=== PATIENT | female | born 1980 | race Hispanic/Latino ===

== ENCOUNTER 2024-03-04 14:59 | Emergency (ER) | payer BC, OTHER ==
[~2024-03-04] VITALS: Ht 154.9 cm; Wt 71.7 kg
[2024-03-04 15:40] LABS: APPEARANCE,URINE CLEAR (CLEAR); BILIRUBIN,URINE NEGATIVE (NEGATIVE); COLOR,URINE LIGHT-YELLOW (YELLOW); GLUCOSE, URINE (UA) NEGATIVE (NEGATIVE); KETONES,URINE NEGATIVE (NEGATIVE); LEUKOCYTE ESTERASE ,URINE NEGATIVE Leu/uL (NEGATIVE); NITRATE,URINE NEGATIVE (NEGATIVE); OCCULT BLOOD,URINE NEGATIVE (NEGATIVE); PROTEIN,URINE 10 mg/dL (NEGATIVE); UROBILINOGEN,URINE 0.2 mg/dL (0.2-1.0)
[2024-03-04 15:43] LABS: HCG,QUALITATIVE URINE NEGATIVE (NEGATIVE)
[2024-03-04 15:44] LABS: ADD UA MICROSCOPIC YES
[2024-03-04 15:45] LABS: BACTERIA,URINE RARE /HPF (None Seen); MUCUS,URINE RARE LPF (None Seen); SQUAMOUS EPITHELIAL CELL,UR MOD /HPF (0-2)
[2024-03-04 15:47] LABS: BASOPHILS # (AUTO) 0.05 K/uL (0.00-0.20); BASOPHILS % (AUTO) 0.4 % (0.0-5.0); EOSINOPHILS # (AUTO) 0.02 K/uL (0.00-0.70); EOSINOPHILS % (AUTO) 0.2 % (0.0-8.0); HEMATOCRIT 37.3 % (36-48); IMMATURE GRANULOCYTE ABSOLUTE 0.05 K/uL (0-1); LYMPHOCYTES # (AUTO) 0.8 K/uL (1.0-4.8); MEAN CORPUSCULAR HEMOGLOBIN 24.5 pg (27.0-33.0); MEAN CORPUSCULAR HGB CONC 30.8 g/dL (32.0-36.0); MEAN CORPUSCULAR VOLUME 79.4 fL (79-99); MONOCYTES # (AUTO) 0.4 K/uL (0.1-1.0); MONOCYTES % (AUTO) 2.8 % (3.0-13.0); NEUTROPHILS # (AUTO) 11.5 K/uL (1.8-7.7); NEUTROPHILS % (AUTO) 90.2 % (40.0-77.0); PLATELET COUNT (AUTO) 221 K/uL (130-400); RED CELL DISTRIBUTION WIDTH 21.1 % (11.0-15.5); WHITE BLOOD COUNT (AUTO) 12.8 K/uL (4.8-10.8)
[2024-03-04] MEDS: 0.9%NACL 1000ML 1,000 ML IV ONE (15:52)
[2024-03-04] MEDS: ONDANSETRON 4MG INJ IVP ONE (15:53)
[2024-03-04] MEDS: KETOROLAC 15MG/ML VIAL (15MG/ML) IV ONE (15:53)
[2024-03-04] MEDS: MAG/ALUM/SIMETH 30 ML UDCUP PO ONE (15:53)
[2024-03-04] MEDS: LIDOCAINE HCL 2% VISCOUS 15 ML UDCUP PO ONE (15:53)
[2024-03-04] MEDS: FAMOTIDINE 20MG VIAL IV ONE (15:53)
[2024-03-04 15:59] LABS: CREATININE 0.6 mg/dL (0.5-1.0); POTASSIUM 4.4 mmol/L (3.5-5.1)
[2024-03-04 16:04] LABS: ALBUMIN 3.9 g/dL (3.5-5.0); BILIRUBIN,TOTAL 0.4 mg/dL (0.2-1.0)
[2024-03-04 16:05] LABS: WBC MORPHOLOGY CONSISTENT W/DIFF
[2024-03-04] MEDS ORDERED: IOHEXOL 350 MG/ML 100ML INFUS..BTL IV ONE (17:32)
[2024-03-04 17:43] VITALS: BP 135/72; PULSE 75; RESP 16; O2SAT 100
[2024-03-04] MEDS ORDERED: ONDA4TAB10 PO (18:31)
[2024-03-04] MEDS ORDERED: FAMO-136 PO (18:31)
== END 2024-03-04 18:47 | disposition home or self-care (01) ==
LOC: EDH 14:59
DX: K52.9 Noninfective gastroenteritis and colitis, unspecified (principal); R10.13 Epigastric pain; R11.2 Nausea with vomiting, unspecified; E11.9 Type 2 diabetes mellitus without complications; E78.00 Pure hypercholesterolemia, unspecified; Z90.49 Acquired absence of other specified parts of digestive tract
CPT/HCPCS: 99284; 74177; 96374; 96375; 96361; 80053; 83690; 85025; 81001; 81025; 36415; J3490; J7030; J2405; J1885; Q9967

== ENCOUNTER 2024-04-30 12:08 | Emergency (ER) | payer BC ==
[~2024-04-30] VITALS: Ht 162.6 cm; Wt 70.8 kg
[~2024-04-30 12:08] MED LIST: FAMO-136 PO; ONDA-243 PO
[2024-04-30 12:56] LABS: BASOPHILS # (AUTO) 0.05 K/uL (0.00-0.20); BASOPHILS % (AUTO) 0.3 % (0.0-5.0); EOSINOPHILS # (AUTO) 0.01 K/uL (0.00-0.70); EOSINOPHILS % (AUTO) 0.1 % (0.0-8.0); HEMATOCRIT 36.5 % (36-48); IMMATURE GRANULOCYTE ABSOLUTE 0.09 K/uL (0-1); LYMPHOCYTES # (AUTO) 0.6 K/uL (1.0-4.8); LYMPHOCYTES % (AUTO) 3.3 % (21.0-51.0); MEAN CORPUSCULAR HEMOGLOBIN 24.9 pg (27.0-33.0); MEAN CORPUSCULAR HGB CONC 32.1 g/dL (32.0-36.0); MEAN CORPUSCULAR VOLUME 77.8 fL (79-99); MONOCYTES # (AUTO) 0.5 K/uL (0.1-1.0); MONOCYTES % (AUTO) 2.9 % (3.0-13.0); NEUTROPHILS # (AUTO) 17.1 K/uL (1.8-7.7); NEUTROPHILS % (AUTO) 92.9 % (40.0-77.0); PLATELET COUNT (AUTO) 214 K/uL (130-400); RED BLOOD CELL COUNT(AUTO) 4.69 MIL/uL (4.00-5.50); RED CELL DISTRIBUTION WIDTH 14.3 % (11.0-15.5); WHITE BLOOD COUNT (AUTO) 18.4 K/uL (4.8-10.8)
[2024-04-30 13:04] LABS: CREATININE 0.7 mg/dL (0.5-1.0); POTASSIUM 4.4 mmol/L (3.5-5.1)
[2024-04-30 13:08] LABS: ALBUMIN 3.8 g/dL (3.5-5.0); BILIRUBIN,TOTAL 0.5 mg/dL (0.2-1.0); TOTAL PROTEIN, SERUM 7.9 g/dL (6.0-8.3)
[2024-04-30 14:37] LABS: ADD UA MICROSCOPIC YES; APPEARANCE,URINE CLEAR (CLEAR); BILIRUBIN,URINE NEGATIVE (NEGATIVE); COLOR,URINE LIGHT-YELLOW (YELLOW); GLUCOSE, URINE (UA) 500 mg/dL (NEGATIVE); KETONES,URINE 5 mg/dL (NEGATIVE); LEUKOCYTE ESTERASE ,URINE NEGATIVE Leu/uL (NEGATIVE); NITRATE,URINE NEGATIVE (NEGATIVE); OCCULT BLOOD,URINE SMALL (NEGATIVE); PROTEIN,URINE 50 mg/dL (NEGATIVE); UROBILINOGEN,URINE 0.2 mg/dL (0.2-1.0)
[2024-04-30 14:38] LABS: MUCUS,URINE RARE LPF (None Seen); SQUAMOUS EPITHELIAL CELL,UR FEW /HPF (0-2)
[2024-04-30 14:39] LABS: HCG,QUALITATIVE URINE NEGATIVE (NEGATIVE)
[2024-04-30] MEDS ORDERED: IOHEXOL-350 75 ML VIAL IV ONE (15:59)
[2024-04-30] MEDS ORDERED: IOHEXOL 350 MG/ML 100ML INFUS..BTL IV ONE (16:35)
[2024-04-30] MEDS: KETOROLAC 15MG/ML VIAL (15MG/ML) IV ONE (17:15)
[2024-04-30 17:59] VITALS: BP 110/62; PULSE 62; RESP 18; O2SAT 98
[2024-04-30] MEDS ORDERED: ONDA-243 PO (18:06)
[2024-04-30] MEDS ORDERED: FAMO-136 PO (18:06)
[2024-04-30] MEDS ORDERED: AZIT250T9 PO (18:06)
[2024-04-30] MEDS: CEFTRIAXONE 1G VIAL IM ONE (18:10)
[2024-04-30] MEDS ORDERED: CEFTRIAXONE 1G VIAL IVPB ONE (18:30)
== END 2024-04-30 18:28 | disposition home or self-care (01) ==
LOC: EDH 12:08
DX: K52.9 Noninfective gastroenteritis and colitis, unspecified (principal); R11.2 Nausea with vomiting, unspecified; D72.829 Elevated white blood cell count, unspecified; E78.00 Pure hypercholesterolemia, unspecified; Z90.710 Acquired absence of both cervix and uterus
CPT/HCPCS: 99284; 74177; 96374; 80053; 83690; 85025; 81001; 81025; 36415; 96372; J0696; J1885; Q9967

== ENCOUNTER 2024-08-23 18:41 | Inpatient (IN) | payer BC ==
[~2024-08-23] VITALS: Ht 157.5 cm; Wt 67.6 kg
[~2024-08-23 18:41] MED LIST changes: +AZIT250T9 PO
[2024-08-23 19:12] LABS: BASOPHILS # (AUTO) 0.04 K/uL (0.00-0.20); BASOPHILS % (AUTO) 0.2 % (0.0-5.0); HEMATOCRIT 34.6 % (36-48); IMMATURE GRANULOCYTE ABSOLUTE 0.11 K/uL (0-1); LYMPHOCYTES # (AUTO) 0.4 K/uL (1.0-4.8); LYMPHOCYTES % (AUTO) 2.5 % (21.0-51.0); MEAN CORPUSCULAR HEMOGLOBIN 23.2 pg (27.0-33.0); MEAN CORPUSCULAR HGB CONC 31.8 g/dL (32.0-36.0); MONOCYTES # (AUTO) 0.4 K/uL (0.1-1.0); MONOCYTES % (AUTO) 2.3 % (3.0-13.0); NEUTROPHILS % (AUTO) 94.3 % (40.0-77.0); PLATELET COUNT (AUTO) 152 K/uL (130-400); RED BLOOD CELL COUNT(AUTO) 4.74 MIL/uL (4.00-5.50); WHITE BLOOD COUNT (AUTO) 16.9 K/uL (4.8-10.8)
[2024-08-23] MEDS: ondanSETRON 4MG INJ IVP ONE (19:20)
[2024-08-23] MEDS: FAMOTIDINE 20MG VIAL IV ONE (19:20)
[2024-08-23] MEDS: 0.9%NACL 1000ML 1,000 ML IV ONE (19:20)
[2024-08-23] MEDS: morPHINE 4 MG SYG IVP ONE ×2 (19:21→21:27)
[2024-08-23 19:22] LABS: CREATININE 0.7 mg/dL (0.5-1.0); POTASSIUM 3.6 mmol/L (3.5-5.1)
[2024-08-23 19:31] LABS: APPEARANCE,URINE CLOUDY (CLEAR); BILIRUBIN,URINE NEGATIVE (NEGATIVE); COLOR,URINE BROWN (YELLOW); GLUCOSE, URINE (UA) 50 mg/dL (NEGATIVE); KETONES,URINE 100 mg/dL (NEGATIVE); LEUKOCYTE ESTERASE ,URINE 75 Leu/uL (NEGATIVE); NITRATE,URINE NEGATIVE (NEGATIVE); OCCULT BLOOD,URINE LARGE (NEGATIVE); PH,URINE 5.5 (5.0-8.0); PROTEIN,URINE 100 mg/dL (NEGATIVE); UROBILINOGEN,URINE 0.2 mg/dL (0.2-1.0)
[2024-08-23 19:32] LABS: ADD UA MICROSCOPIC YES
[2024-08-23 19:33] LABS: HCG,QUALITATIVE URINE NEGATIVE (NEGATIVE)
[2024-08-23 19:34] LABS: MUCUS,URINE MANY LPF (None Seen); RBC,URINE TNTC /HPF (0-1); SQUAMOUS EPITHELIAL CELL,UR MANY /HPF (0-2); UNCLASSIFIED CRYSTAL 11 /HPF (None Seen); WBC CLUMP MOD /HPF (0-1); WBC,URINE TNTC /HPF (0-1); YEAST,URINE BUDDING FEW /HPF (None Seen)
[2024-08-23] MEDS ORDERED: IOHEXOL-350 75 ML VIAL IV ONE (19:35)
[2024-08-23] MEDS: Solu-medROL 125MG VIAL IVP ONE (21:27)
[2024-08-23] MEDS ORDERED: TEMAZepam 15 MG CAPSULE PO PRN (21:30)
[2024-08-23] MEDS ORDERED: acetaMINOPHEN 650 MG SUPPOSITORY RC PRN (21:30)
[2024-08-23] MEDS ORDERED: doCUSate SODIUM 100 MG CAP PO PRN (21:30)
[2024-08-23] MEDS ORDERED: acetaMINOPHEN 325 MG TAB PO PRN (21:30)
[2024-08-23] MEDS ORDERED: morPHINE 2 MG SYG IVP PRN (21:30)
[2024-08-23] MEDS: metRONIDazole 500MG/100ML BAG 100 ML IVPB SCH (22:20)
[2024-08-23] MEDS: levoFLOXacin 500 MG/D5W 100 ML 100 ML IV SCH (22:20)
[2024-08-23 23:05] VITALS: BP 142/65; PULSE 73; RESP 17; TEMP 97.4
[2024-08-23] MEDS ORDERED: ROSU20TA98 PO (23:37)
[2024-08-23] MEDS ORDERED: PANT40TA54 PO (23:37)
[2024-08-23] MEDS ORDERED: METF-444 PO (23:37)
[2024-08-23] MEDS ORDERED: DICY10 PO (23:37)
[2024-08-24 03:45] LABS: SARS-CoV-2, RNA, NAAT NEGATIVE SARS CoV-2 (NEGATIVE)
[2024-08-24 03:49] LABS: INFLUENZA TYPE A Negative For Type A (NEGATIVE); INFLUENZA TYPE B Negative For Type B (NEGATIVE)
[2024-08-24 03:53] LABS: BASOPHILS # (AUTO) 0.01 K/uL (0.00-0.20); BASOPHILS % (AUTO) 0.1 % (0.0-5.0); HEMATOCRIT 36.2 % (36-48); IMMATURE GRANULOCYTE ABSOLUTE 0.06 K/uL (0-1); LYMPHOCYTES # (AUTO) 0.3 K/uL (1.0-4.8); LYMPHOCYTES % (AUTO) 2.8 % (21.0-51.0); MEAN CORPUSCULAR HEMOGLOBIN 23.5 pg (27.0-33.0); MEAN CORPUSCULAR HGB CONC 31.5 g/dL (32.0-36.0); MEAN CORPUSCULAR VOLUME 74.6 fL (79-99); MONOCYTES # (AUTO) 0.1 K/uL (0.1-1.0); MONOCYTES % (AUTO) 0.9 % (3.0-13.0); NEUTROPHILS # (AUTO) 11.5 K/uL (1.8-7.7); NEUTROPHILS % (AUTO) 95.7 % (40.0-77.0); PLATELET COUNT (AUTO) 140 K/uL (130-400); RED BLOOD CELL COUNT(AUTO) 4.85 MIL/uL (4.00-5.50)
[2024-08-24 04:00] VITALS: BP 112/69; PULSE 66; RESP 16; TEMP 97.5
[2024-08-24] MEDS: 0.9%NACL 1000ML 1,000 ML IV SCH (04:14)
[2024-08-24 04:16] LABS: ALBUMIN 3.4 g/dL (3.5-5.0); BILIRUBIN,TOTAL 0.5 mg/dL (0.2-1.0); CREATININE 0.7 mg/dL (0.5-1.0); MAGNESIUM 1.9 mg/dL (1.80-2.40); POTASSIUM 3.6 mmol/L (3.5-5.1); TOTAL PROTEIN, SERUM 7.4 g/dL (6.0-8.3)
[2024-08-24] MEDS: INSULIN humuLIN R 100 UNIT/ML 3ML SQ SCH (05:59)
[2024-08-24 07:58] VITALS: BP 140/76; PULSE 71; RESP 20; TEMP 98
[2024-08-24 08:10] VITALS: O2SAT 99
[2024-08-24] MEDS: atorVAStatin 40 MG TABLET PO SCH (08:14)
[2024-08-24] MEDS: FAMOTIDINE 20MG TAB PO SCH (08:14)
[2024-08-24] MEDS: ENOXAPARIN SODIUM 30 MG/0.3 ML SQ SCH (08:16)
[2024-08-24 11:00] VITALS: BP 140/77; PULSE 78; RESP 18; TEMP 98.3
[2024-08-24] MEDS: LACTULOSE 20 GM/30 ML UDCUP PO PRN (13:20)
[2024-08-24] MEDS: ondanSETRON 4MG INJ IVP PRN (13:25)
[2024-08-24 16:00] VITALS: BP 122/68; PULSE 80; RESP 18; TEMP 98.6
[2024-08-24 20:00] VITALS: BP 108/57; PULSE 80; RESP 18; TEMP 97.5
[2024-08-24] MEDS: DICYCLOMINE HCL 20 MG TAB PO PRN (20:44)
[2024-08-25] VITALS (8 sets, daily range): BP systolic 109–148; BP diastolic 55–77; PULSE 64–84; RESP 17–19; TEMP 97.4–98.9; O2SAT 100
[2024-08-25] MEDS: ketOROlac 30MG VIAL (30MG/ML) IVP PRN (17:53)
[2024-08-26 04:10] VITALS: BP 124/57; PULSE 58; RESP 18; TEMP 98
[2024-08-26 08:00] VITALS: BP 129/68; PULSE 56; RESP 19; TEMP 98.1
[2024-08-26 08:35] VITALS: O2SAT 99
[2024-08-26] MEDS ORDERED: LEVO-70 PO (09:52)
[2024-08-26 10:36] LABS: BASOPHILS # (AUTO) 0.04 K/uL (0.00-0.20); BASOPHILS % (AUTO) 0.7 % (0.0-5.0); EOSINOPHILS # (AUTO) 0.04 K/uL (0.00-0.70); EOSINOPHILS % (AUTO) 0.7 % (0.0-8.0); HEMATOCRIT 30.3 % (36-48); IMMATURE GRANULOCYTE ABSOLUTE 0.02 K/uL (0-1); LYMPHOCYTES # (AUTO) 1.7 K/uL (1.0-4.8); LYMPHOCYTES % (AUTO) 28.2 % (21.0-51.0); MEAN CORPUSCULAR HEMOGLOBIN 23.1 pg (27.0-33.0); MEAN CORPUSCULAR HGB CONC 30.7 g/dL (32.0-36.0); MEAN CORPUSCULAR VOLUME 75.4 fL (79-99); MONOCYTES # (AUTO) 0.3 K/uL (0.1-1.0); MONOCYTES % (AUTO) 5.6 % (3.0-13.0); NEUTROPHILS # (AUTO) 3.9 K/uL (1.8-7.7); NEUTROPHILS % (AUTO) 64.5 % (40.0-77.0); PLATELET COUNT (AUTO) 110 K/uL (130-400); RED BLOOD CELL COUNT(AUTO) 4.02 MIL/uL (4.00-5.50); RED CELL DISTRIBUTION WIDTH 14.5 % (11.0-15.5)
[2024-08-26 12:13] VITALS: BP 134/75; PULSE 79; RESP 19; TEMP 97.6
[2024-08-26 13:17] LABS: HEMOGLOBIN A1C 6.1 % (4.0-6.0)
[2024-08-26 13:44] LABS: CHOLESTEROL 111 mg/dL (<200); HDL CHOLESTEROL 42 mg/dL (35-85); LDL DIRECT 50 mg/dL (0-99); TRIGLYCERIDES 129 mg/dL (30-200)
== END 2024-08-26 13:35 | disposition home or self-care (01) | DRG 392 ==
LOC: EDH 18:41 → EDHIP 21:08 → 3DH 23:11
PROVIDERS: ADMIT Internal Medicine; ATTEND Internal Medicine
DX: A09 Infectious gastroenteritis and colitis, unspecified (principal); N30.00 Acute cystitis without hematuria; Z20.822 Contact with and (suspected) exposure to COVID-19; E86.0 Dehydration; D64.9 Anemia, unspecified; E11.65 Type 2 diabetes mellitus with hyperglycemia; I10 Essential (primary) hypertension; E78.00 Pure hypercholesterolemia, unspecified; Z87.11 Personal history of peptic ulcer disease; Z90.49 Acquired absence of other specified parts of digestive tract
CPT/HCPCS: 36415; 74177; 80048; 80053; 80061; 81001; 81025; 82010; 82306; 82607; 82948; 83036; 83690; 83735; 84100; 85025; 86677; 87040; 87086; 87338; 87635; 87804; 96374; 96375; G0378; J1650; J1885; J1956; J2270; J2405; J2919; J3490; J7030; Q9967

== ENCOUNTER 2024-09-04 21:32 | Emergency (ER) | payer BC ==
[~2024-09-04] VITALS: Ht 157.5 cm; Wt 64.9 kg
[~2024-09-04 21:32] MED LIST changes: -AZIT250T9 PO; +DICY10 PO; -FAMO-136 PO; +LEVO-70 PO; +METF-444 PO; +PANT40TA54 PO; +ROSU20TA98 PO
[2024-09-04 22:11] LABS: ADD UA MICROSCOPIC YES; APPEARANCE,URINE CLOUDY (CLEAR); BILIRUBIN,URINE NEGATIVE (NEGATIVE); COLOR,URINE YELLOW (YELLOW); GLUCOSE, URINE (UA) NEGATIVE (NEGATIVE); KETONES,URINE NEGATIVE (NEGATIVE); LEUKOCYTE ESTERASE ,URINE 25 Leu/uL (NEGATIVE); NITRATE,URINE NEGATIVE (NEGATIVE); OCCULT BLOOD,URINE NEGATIVE (NEGATIVE); PROTEIN,URINE 30 mg/dL (NEGATIVE); UROBILINOGEN,URINE 0.2 mg/dL (0.2-1.0)
[2024-09-04 22:13] LABS: MUCUS,URINE RARE LPF (None Seen); NON-SQUAMOUS EPITHELIAL CELL 2 /HPF (0-2); SQUAMOUS EPITHELIAL CELL,UR FEW /HPF (0-2)
[2024-09-04 22:24] LABS: BASOPHILS # (AUTO) 0.04 K/uL (0.00-0.20); BASOPHILS % (AUTO) 0.3 % (0.0-5.0); EOSINOPHILS # (AUTO) 0.01 K/uL (0.00-0.70); EOSINOPHILS % (AUTO) 0.1 % (0.0-8.0); HEMATOCRIT 31.6 % (36-48); IMMATURE GRANULOCYTE ABSOLUTE 0.04 K/uL (0-1); LYMPHOCYTES # (AUTO) 0.8 K/uL (1.0-4.8); LYMPHOCYTES % (AUTO) 5.8 % (21.0-51.0); MEAN CORPUSCULAR HEMOGLOBIN 22.9 pg (27.0-33.0); MEAN CORPUSCULAR HGB CONC 30.7 g/dL (32.0-36.0); MEAN CORPUSCULAR VOLUME 74.5 fL (79-99); MONOCYTES # (AUTO) 0.4 K/uL (0.1-1.0); MONOCYTES % (AUTO) 3.3 % (3.0-13.0); NEUTROPHILS # (AUTO) 11.8 K/uL (1.8-7.7); NEUTROPHILS % (AUTO) 90.2 % (40.0-77.0); PLATELET COUNT (AUTO) 410 K/uL (130-400); RED BLOOD CELL COUNT(AUTO) 4.24 MIL/uL (4.00-5.50); RED CELL DISTRIBUTION WIDTH 14.3 % (11.0-15.5)
[2024-09-04] MEDS: ondanSETRON 4MG INJ IVP ONE (22:25)
[2024-09-04] MEDS: FAMOTIDINE 20MG VIAL IV ONE (22:25)
[2024-09-04] MEDS: 0.9%NACL 1000ML 1,000 ML IV ONE (22:25)
[2024-09-04] MEDS: MAG/ALUM/SIMETH 30 ML UDCUP PO ONE (22:25)
[2024-09-04] MEDS: LIDOCAINE HCL 2% VISCOUS 15 ML UDCUP PO ONE (22:26)
[2024-09-04] MEDS: DICYCLOMINE HCL 10 MG/5 ML ML PO ONE (22:26)
[2024-09-04] MEDS: morPHINE 2 MG SYG IVP ONE (22:27)
[2024-09-04 22:32] VITALS: TEMP 97.9
[2024-09-04 22:32] LABS: CREATININE 0.7 mg/dL (0.5-1.0); POTASSIUM 4.2 mmol/L (3.5-5.1)
[2024-09-04 22:37] LABS: ALBUMIN 3.7 g/dL (3.5-5.0); BILIRUBIN,TOTAL 0.6 mg/dL (0.2-1.0); TOTAL PROTEIN, SERUM 7.5 g/dL (6.0-8.3)
[2024-09-04] MEDS ORDERED: SUCR1TAB28 PO (23:09)
[2024-09-04] MEDS ORDERED: OMEP40CA21 PO (23:09)
[2024-09-04 23:22] VITALS: BP 128/51; PULSE 59; RESP 18; O2SAT 100
[2024-09-05 01:04] LABS: WBC MORPHOLOGY CONSISTENT W/DIFF
== END 2024-09-04 23:33 | disposition home or self-care (01) ==
LOC: EDH 21:32
DX: K29.00 Acute gastritis without bleeding (principal); R11.2 Nausea with vomiting, unspecified; E87.8 Other disorders of electrolyte and fluid balance, not elsewhere classified; E78.00 Pure hypercholesterolemia, unspecified; Z79.84 Long term (current) use of oral hypoglycemic drugs; Z79.899 Other long term (current) drug therapy
CPT/HCPCS: 99284; 96374; 96375; 80053; 83690; 85025; 87086; 81001; 36415; J3490; J2270; J7030; J2405

== ENCOUNTER 2025-05-06 12:58 | Emergency (ER) | payer BC ==
[~2025-05-06] VITALS: Ht 157.5 cm; Wt 70.8 kg
[~2025-05-06 12:58] MED LIST changes: +OMEP40CA21 PO; +SUCR1TAB28 PO
--- NOTE | 2025-05-06 13:11 | EKG ---
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
[2025-05-06 13:20] LABS: BASOPHILS # (AUTO) 0.05 K/uL (0.00-0.20); BASOPHILS % (AUTO) 0.5 % (0.0-5.0); EOSINOPHILS # (AUTO) 0.04 K/uL (0.00-0.70); EOSINOPHILS % (AUTO) 0.4 % (0.0-8.0); HEMATOCRIT 42.7 % (36-48); IMMATURE GRANULOCYTE ABSOLUTE 0.04 K/uL (0-1); LYMPHOCYTES # (AUTO) 1.1 K/uL (1.0-4.8); LYMPHOCYTES % (AUTO) 10.3 % (21.0-51.0); MEAN CORPUSCULAR HEMOGLOBIN 26.5 pg (27.0-33.0); MEAN CORPUSCULAR HGB CONC 33.5 g/dL (32.0-36.0); MEAN CORPUSCULAR VOLUME 79.1 fL (79-99); MONOCYTES # (AUTO) 0.4 K/uL (0.1-1.0); MONOCYTES % (AUTO) 3.7 % (3.0-13.0); NEUTROPHILS # (AUTO) 8.9 K/uL (1.8-7.7); NEUTROPHILS % (AUTO) 84.7 % (40.0-77.0); PLATELET COUNT (AUTO) 322 K/uL (130-400); WHITE BLOOD COUNT (AUTO) 10.5 K/uL (4.8-10.8)
[2025-05-06 13:25] LABS: ADD UA MICROSCOPIC YES; APPEARANCE,URINE CLEAR (CLEAR); BILIRUBIN,URINE NEGATIVE (NEGATIVE); COLOR,URINE YELLOW (YELLOW); GLUCOSE, URINE (UA) 30 mg/dL (NEGATIVE); KETONES,URINE NEGATIVE (NEGATIVE); LEUKOCYTE ESTERASE ,URINE NEGATIVE Leu/uL (NEGATIVE); NITRATE,URINE NEGATIVE (NEGATIVE); OCCULT BLOOD,URINE NEGATIVE (NEGATIVE); PH,URINE 5.5 (5.0-8.0); PROTEIN,URINE 20 mg/dL (NEGATIVE); UROBILINOGEN,URINE 0.2 mg/dL (0.2-1.0)
[2025-05-06 13:28] LABS: MUCUS,URINE FEW LPF (None Seen); RBC,URINE 0-1 /HPF (0-1); SQUAMOUS EPITHELIAL CELL,UR RARE /HPF (0-2); WBC,URINE 0-1 /HPF (0-1)
[2025-05-06 13:29] LABS: HCG,QUALITATIVE URINE NEGATIVE (NEGATIVE)
--- NOTE | 2025-05-06 13:33 | ERN ---
General Chief Complaint: Chest Pain Stated Complaint: CHEST PAIN Time Seen by MD: 13:00 Source: patient History of Present Illness Initial Comments In his is a 44-year-old female coming in to be evaluated for chest pressure. Per patient the chest pressure began yesterday. She states that the chest pressure is on and off related to any physical activity. She also states he has a history of cholesterol Allergies: Coded Allergies: No Known Allergies (Unverified Allergy, Unknown, 03/04/24) Home Meds Active Scripts Omeprazole (Omeprazole) 40 Mg Capsule.dr, 1 CAP PO DAILY for 30 Days, #30 CAP 0 Refills Prov:JOSEPHINE VELIZ OENOLOGIST 09/04/24 Sucralfate (Carafate) 1 Gram Tablet, 1 TAB PO ACHS for 10 Days, #40 TAB 0 Refills Prov:JOSEPHINE VELIZ OENOLOGIST 09/04/24 Levofloxacin (Levofloxacin) 500 Mg Tablet, 1 TAB PO DAILY for 5 Days, #5 TAB 0 Refills Prov:RADHA WARD NP 08/26/24 Ondansetron (Ondansetron Odt) 4 Mg Tab.rapdis, 4 MG PO BID for 7 Days, #14 TAB Prov:MARY GAMBINO 04/30/24 Reported Medications Metformin HCl (Metformin HCl) 500 Mg Tablet, 1 TAB PO DAILY 08/23/24 Dicyclomine HCl (Bentyl) 10 Mg Cap, 2 CAP PO BID PRN for pain 08/23/24 Pantoprazole Sodium (Pantoprazole Sodium) 40 Mg Tablet.dr, 1 TAB PO BID 08/23/24 Rosuvastatin Calcium (Rosuvastatin Calcium) 20 Mg Tablet, 1 TAB PO DAILY 08/23/24 Past Medical History Past Medical History: High Cholesterol Medical History Other: X7 GASTRIC ULCERS WITH RESECTION Past Surgical History: Other Surgical History Other: BBL,TUMMY TUCK,BREAST AUGMENTATION Female( History) History: Not Applicable ROS Dictation CONSTITUTIONAL: No chills, no fever, no weakness, no diaphoresis, no malaise. HEAD/FACE: No signs of trauma. EENT: No eye pain, no blurred vision, no tearing, no double vision, no ear pain, no ear discharge, no nose pain, no nasal congestion, no throat pain, no throat swelling, no mouth pain. RESPIRATORY: No cough, no orthopnea, no SOB, no stridor, no wheezing. CARDIOVASCULAR: chest pain, no edema, no palpitations, no syncope. GASTROINTESTINAL/ABDOMINAL: No abdominal pain, no constipation, no diarrhea, no nausea, no vomiting. GENITOURINARY: No abnormal discharge, no dysuria, no frequent urination, no hematuria. No complaints of pain in the genitals. MUSCULOSKELETAL: No back pain, no gout, no joint pain, no joint swelling, no muscle pain, no muscle stiffness, no neck pain. INTEGUMENTARY: No change in color, no change in hair/nails, no dryness, no lesion, no lumps, no rash. NEUROLOGICAL/PSYCH: No anxiety, not depressed, no emotional problem, no headache, no numbness, no pre-existing deficit, no history of seizures, no tremors, no weakness. HEMATOLOGIC/LYMPHATIC: Not anemic, no history of blood clots, no apparent bleeding, no bruising, glands not swollen. All Systems Negative, Except as Noted. Physical Exam Physical Exam Dictation VITAL SIGNS: Reviewed. GENERAL APPEARANCE: Alert, oriented x3, no acute distress, obese. HEAD AND FACE: Non-traumatic. EYES: PERRL, pink conjunctivas, eyelid no trauma, anterior chamber clear. EARS: Pinnas intact and no signs of trauma or erythema. Ear canals clear and no discharge. TMs no erythema. NOSE: No discharge, no bleeding. OROPHARYNX: Mouth normal, teeth no caries, tongue pink. Pharynx clear, no erythema. Tonsils no exudates, no abscesses noted. Mucous membrane moist. NECK: Supple, non-tender, no thyromegaly, no masses, no JVD, no bruits. BREAST: Deferred. CHEST: No tenderness, no crepitus, no paradoxical movement, no retractions. LUNGS: Clear, well-ventilated, symmetric, no rales, no wheezing, no rhonchi, no stridor, good breath sounds bilaterally. HEART: Regular rate, regular rhythm, no murmur, no gallops. VASCULAR: No peripheral edema. ABDOMEN: Soft, positive bowel sounds, nondistended, no guarding, nontender, no rebound, no masses no hepatomegaly, no splenomegaly, no Cornelius's sign, no hernias. RECTAL: Deferred. GENITAL: Deferred. NEUROLOGICAL: Normal speech, gross motor function intact, gross sensory function intact. MUSCULOSKELETAL: Neck nontender, full range of motion, back nontender, full range of motion. EXTREMITIES: Nontender, full range of motion. SKIN: Color pink, dry, no turgor, no rash, no lacerations, no abrasions, no contusions. LYMPHATICS: Deferred. Results Laboratory and Microbiology Lab and Micro Result Laboratory Tests Test 05/06/25 13:02 05/06/25 13:14 05/06/25 14:10 Urine Color YELLOW (YELLOW) Urine Appearance CLEAR (CLEAR) Urine pH 5.5 (5.0-8.0) Urine Specific [place] 1.024 (1.001-1.031) Urine Protein 20 mg/dL (NEGATIVE) H Urine Glucose (UA) 30 mg/dL (NEGATIVE) H Urine Ketones NEGATIVE mg/dL (NEGATIVE) Urine Occult Blood NEGATIVE (NEGATIVE) Urine Nitrate NEGATIVE (NEGATIVE) Urine Bilirubin NEGATIVE mg/dL (NEGATIVE) Urine Urobilinogen 0.2 mg/dL (0.2-1.0) Urine Leukocyte Esterase NEGATIVE Bette/uL Urine RBC 0-1 /HPF (0-1) Urine WBC 0-1 /HPF (0-1) Urine Squamous Epithelial Cells RARE /HPF (0-2) Urine Bacteria None /HPF (None Seen) Urine HCG, Qualitative NEGATIVE (NEGATIVE) White Blood Count 10.5 K/uL (4.8-10.8) Red Blood Count 5.40 MIL/uL (4.00-5.50) Hemoglobin 14.3 g/dL (12.0-16.0) Hematocrit 42.7 % (36-48) Mean Corpuscular Volume 79.1 fL (79-99) Mean Corpuscular Hemoglobin 26.5 pg (27.0-33.0) L Mean Corpuscular Hemoglobin Concent 33.5 g/dL (32.0-36.0) Red Cell Distribution Width 16.0 % (11.0-15.5) H Platelet Count 322 K/uL (130-400) Mean Platelet Volume 10.6 fL (7.5-10.5) H Immature Granulocyte % (Auto) 0.4 % (0-1) Neutrophils (%) (Auto) 84.7 % (40.0-77.0) H Lymphocytes (%) (Auto) 10.3 % (21.0-51.0) L Monocytes (%) (Auto) 3.7 % (3.0-13.0) Eosinophils (%) (Auto) 0.4 % (0.0-8.0) Basophils (%) (Auto) 0.5 % (0.0-5.0) Neutrophils # (Auto) 8.9 K/uL (1.8-7.7) H Lymphocytes # (Auto) 1.1 K/uL (1.0-4.8) Monocytes # (Auto) 0.4 K/uL (0.1-1.0) Eosinophils # (Auto) 0.04 K/uL (0.00-0.70) Basophils # (Auto) 0.05 K/uL (0.00-0.20) Absolute Immature Granulocyte (auto 0.04 K/uL (0-1) Nucleated Red Blood Cells 0.0 % (0.0-0.19) Sodium Level 137 mmol/L (136-145) Potassium Level 4.1 mmol/L (3.5-5.1) Chloride Level 98 mmol/L (101-111) L Carbon Dioxide Level 35 mmol/L (21-32) H Blood Urea Nitrogen 9 mg/dL (7-18) Creatinine 0.5 mg/dL (0.5-1.0) Glomerular Filtration Rate Calc 117 mL/min (>90) Random Glucose 150 mg/dL (70-105) H Total Calcium 9.3 mg/dL (8.5-10.1) Troponin I High Sensitivity 4 ng/L (4-50) 5 ng/L (4-50) Labs Reviewed?: Yes EKG/XRAY/US/CT/MRI EKG Comment 05/06/2025 time 12:54 p.m. Ventricular rate [address] wave elevation or depression X-RAY Comment CHEST X-RAY-[facility] MDM: Differential diagnosis: Chest pressure, GERD, gastritis, NSTEMI, STEMI Rationale: Tests considered and ordered secondary to shared decision making include: Previous outside records reviewed: Old ER visits. Risk of complication and/or morbidity or mortality of patient management: None Medications-Per medication reconciliation Need for hospitalization: Patient does not meet criteria for hospitalization. PATIENT IS A 44-YEAR-OLD FEMALE COMING IN TO BE EVALUATED FOR MULTIPLE COMPLAINTS. PATIENT STATES THAT SHE HAS BEEN FEELING CHEST PRESSURE HAS NOT BEEN EATING WELL. SHE ALSO STATES HE HAS BEEN SKIPPING MEALS AND ALSO FEELS A LITTLE DIZZY AT TIMES. ON PHYSICAL EXAM BILATERAL NASAL TURBINATE SWELLING MILD PRESSURE ON THE MAXILLARY SINUSES. PATIENT WAS HYDRATED WITH IV FLUIDS GIVEN SMALL COURSE OF STEROIDS WELL A GI COCKTAIL STATES HER SYMPTOMS IMPROVED SIGNIFICANTLY. PATIENT WILL BE DISCHARGED IN STABLE CONDITION WITH A DIAGNOSIS OF GERD SINUSITIS AND DEHYDRATION. I DID ADVISED HER APPROPRIATE FOLLOW UP WITH PCP IN 1-2 DAYS. PATIENT WILL BE DISCHARGED SYMPTOM FREE. ED Course Orders Procedure Category Date Status Time 12 Lead Ekg Tracing- EKG 05/06/25 Complete Technical 12:59 Cbc With Differential LAB 05/06/25 Complete 13:06 Chest 1vw RAD 05/06/25 Taken 13:06 Troponin I High LAB 05/06/25 Complete Sensitivity 13:06 Urinalysis Profile LAB 05/06/25 Complete 13:06 Basic Metabolic Panel LAB 05/06/25 Complete 13:06 ,Urine Test LAB 05/06/25 Complete 13:06 Pantoprazole 40mg Inj PHA 05/06/25 Complete (Protonix 40mg Inj 13:30 Lidocaine Hcl 2% PHA 05/06/25 Complete Viscous (Lidocaine Hcl 13:30 Mag/Alum/Simeth 30ml PHA 05/06/25 Complete (Maalox Plus 30ml) 13:30 0.9%Nacl 1000ml (Ns PHA 05/06/25 Complete 1000ml) 14:30 Dexamethasone 4mg/Ml PHA 05/06/25 Complete 1ml Vial (Dexametha 14:30 Troponin I High LAB 05/06/25 Complete Sensitivity 14:12 Current Medications Medications (Trade) Dose Ordered Sig/Russ Route PRN Reason Start Time Stop Time Status Last Admin Dose Admin Al Hydroxide/Mg Hydroxide (MAALox PLUS 30ML) 30 ml ONCE ONCE PO 05/06/25 13:30 05/06/25 13:31 DC 05/06/25 13:48 Dexamethasone Sodium Phosphate (dexaMETHasone 4MG/ML 1ML VIAL) 4 mg ONCE ONCE IM 05/06/25 14:30 05/06/25 14:31 DC 05/06/25 14:29 Lidocaine HCl (Lidocaine HCl 2% Viscous) 10 ml ONCE ONCE PO 05/06/25 13:30 05/06/25 13:31 DC 05/06/25 13:48 Pantoprazole Sodium (PROTonix 40MG INJ) 40 mg ONCE ONCE IVP 05/06/25 13:30 05/06/25 13:31 DC 05/06/25 13:48 Sodium Chloride 1,000 ml @ 0 mls/hr ONCE ONCE IV 05/06/25 14:30 05/06/25 14:31 DC 05/06/25 14:31 Vital Signs Date Time Temp Pulse Resp B/P (MAP) Pulse Ox O2 Delivery O2 Flow Rate FiO2 05/06/25 14:58 98.1 80 2 118/85 98 Room Air* 0 21 05/06/25 13:00 98.1 87 20 128/83 98 DX & DISP Disposition: Discharge Departure Impression: Primary Impression: Dehydration Additional Impressions: Sinusitis, GERD (gastroesophageal reflux disease) Condition: Stable Scripts Fluticasone Propionate (Flonase Nasal [place]) 50 Mcg/Actuation [place] 2 SPRAY NS DAILY, #16 GM 0 Refills Prov: BRANDON BERMUDEZ MD 05/06/25 Lactobacillus Acidophilus (Acidophilus Probiotic) 500 Million Cell Capsule 1 CAP PO BID for 7 Days, #14 CAP 0 Refills Prov: BRANDON BERMUDEZ MD 05/06/25 Pantoprazole Sodium (Protonix) 40 Mg Ectab 1 TAB PO DAILY for 30 Days, #30 TAB 0 Refills Prov: BRANDON BERMUDEZ MD 05/06/25 Additional Instructions: YOU HAVE BEEN REVIEWED IN THE EMERGENCY DEPARTMENT AT [facility] AFTER PRESENTING WITH CHEST PAIN. AFTER CONSIDERING YOUR HISTORY, YOUR RISK FACTORS, YOUR EKG AND YOUR BLOOD TEST TROPONINS, HAVE BEEN FOUND TO BE AT VERY LOW RISK LESS THAN (1 IN 100) OF HAVING A MAJOR ADVERSE CARDIAC EVENT (LIKE HEART ATTACK) IN THE NEAR FUTURE. IN THE " LOW RISK" GROUP, THE RISKS OF DOING FURTHER TESTS AND TREATMENT THE INPATIENT OUTWEIGHS THE BENEFITS. IN MANY PATIENTS IN THE LOW RISK GROUP FOR THE TEST OF ANY SORT OR UNNECESSARY, HOWEVER HE SHOULD DISCUSS THIS FURTHER WITH HIS GENERAL PRACTITIONER WHO WILL UNDERSTAND THE MEDICAL AND PERSONAL BACKGROUNDS BETTER. BECAUSE WE HAVE NEVER DECLARED YOU" NO RISK" WE WOULD SUGGEST. 1 RETURNING FOR MEDICAL REVIEW IF YOU HAVE FURTHER EPISODES OF CHEST PAIN/ARM PAIN OR OTHER CONCERNING SYMPTOMS LIKE DIZZINESS, COLLAPSE, PALPITATIONS OR SHORTNESS OF BREATH. 2. FOLLOWING UP WITH YOUR LOCAL DOCTOR WHO WILL CONSIDER THE NEED FOR FURTHER TESTING AND WILL ALSO ENSURE THAT ANY MODIFIABLE RISK FACTORS YOU MAY HAVE FOR HEART DISEASE ARE OPTIMALLY MANAGED. PATIENT WILL BE DISCHARGED IN STABLE CONDITION AT THE MOMENT DISCHARGE PATIENT STATES , NO CHEST PAIN Referrals: MELANIE TRAN (PCP) MARILEE KELLER MD Time of Disposition: 15:05 BRANDON BERMUDEZ MD May 06, 2025 13:33
[2025-05-06 13:39] LABS: CREATININE 0.5 mg/dL (0.5-1.0); POTASSIUM 4.1 mmol/L (3.5-5.1)
[2025-05-06] MEDS: MAG/ALUM/SIMETH 30 ML UDCUP PO ONE (13:48)
[2025-05-06] MEDS: PANTOPrazole 40 MG/VIAL IVP ONE (13:48)
[2025-05-06] MEDS: LIDOCAINE HCL 2% VISCOUS 15 ML UDCUP PO ONE (13:48)
[2025-05-06] MEDS: dexaMETHasone SOD PHOSPHATE 4 MG/ML 1ML VIAL IM ONE (14:29)
[2025-05-06] MEDS: 0.9%NACL 1000ML 1,000 ML IV ONE (14:31)
[2025-05-06 14:58] VITALS: BP 118/85; PULSE 80; RESP 2; TEMP 98.1; O2SAT 98
[2025-05-06] MEDS ORDERED: PANT40TA55 PO (15:06)
[2025-05-06] MEDS ORDERED: LACT-356 PO (15:06)
[2025-05-06] MEDS ORDERED: FLUT16H NS (15:06)
--- NOTE | 2025-05-06 16:05 | HMCIMG ---
CHEST 1VW HISTORY: Chest pain COMPARISON: None FINDINGS: A frontal projection of the chest was obtained. Prominent interstitial markings are seen with possible superimposed infiltrates. The heart is normal in size. No evidence of aortic calcification is seen. IMPRESSION: 1. Prominent interstitial markings are seen with possible superimposed infiltrates.
== END 2025-05-06 15:26 | disposition home or self-care (01) ==
LOC: EDH 12:58
DX: E86.0 Dehydration (principal); J32.9 Chronic sinusitis, unspecified; K21.9 Gastro-esophageal reflux disease without esophagitis; E78.00 Pure hypercholesterolemia, unspecified; Z79.84 Long term (current) use of oral hypoglycemic drugs; Z79.899 Other long term (current) drug therapy; Z87.11 Personal history of peptic ulcer disease
CPT/HCPCS: 99284; 96374; 71045; 96361; 84484 ×2; 80048; 85025; 81001; 81025; 36415; 93005; 96372; J1100; J7030; J2470